=== PATIENT | female | born 1995 | race Caucasian/White ===

== ENCOUNTER 2023-04-09 09:15 | Outpatient (CLI) | payer OTHER, SELFPAY ==
[2023-04-09 11:12] LABS: Basophils Absolute Auto 0.1 K/mm3 (0.0-0.1); Basophils Percent Auto 0.4 % (0.2-1.2); Eosinophils Absolute Auto 0.3 K/mm3 (0-0.3); Eosinophils Percent Auto 1.8 % (0-4.4); Hemoglobin 12.6 g/dL (12.0-15.0); Immature Granulocyte Absolute 0.14 K/mm3 (0.00-0.031); Immature Granulocyte Percent A 0.9 % (0-0.5); Lymphocytes Absolute Auto 3.01 K/mm3 (0.9-3.2); Lymphocytes Percent Auto 18.9 % (18.3-44.2); Mean Corpuscular HGB Conc 32.3 g/dl (32-36); Mean Corpuscular Hemoglobin 28.7 pg (26-34); Mean Corpuscular Volume 88.8 fl (80-100); Mean Platelet Volume 9.8 fl (7.4-10.4); Monocytes Percent Auto 6.2 % (2.6-8.5); Neutrophils Absolute Auto 11.4 K/mm3 (1.3-6.7); Neutrophils Percent Auto 71.8 % (45.5-73.1); Platelet Count Result 350 k/mm3 (150-375); Red Blood Count 4.39 M/mm3 (4.2-5.4); White Blood Count 15.9 K/mm3 (4.5-10.0)
[2023-04-09 11:46] LABS: Glucose 1 Hour PP 50gm Dose 91 mg/dL
[2023-04-09 12:02] LABS: HIV 1/2 Ab P24 Ag Result Negative (Negative)
[2023-04-09 12:09] LABS: Hepatitis B Surface Antigen Negative (Negative); Rubella IgG Antibody 9.1 IU/ML
[2023-04-09 17:05] LABS: Rapid Plasma Reagin Non-Reactive (NonReactive)
[2023-04-13 09:00] LABS: CMV IgG Antibody <0.60 U/mL (<0.60)
== END 2023-04-09 09:16 | disposition home or self-care (01) ==
PROVIDERS: Visit Provider Student in an Organized Health Care Education/Training Program
DX: N94.89 Other specified conditions associated with female genital organs and menstrual cycle (principal)
CPT/HCPCS: 36415; 82947; 84702; 85025; 86592; 86644; 86703; 86747; 86762; 86787; 86850; 86900; 86901; 87086; 87340; G0432

== ENCOUNTER 2023-08-27 13:21 | Outpatient (CLI) | payer OTHER, SELFPAY ==
[2023-08-27 14:43] LABS: Basophils Absolute Auto 0.1 K/mm3 (0.0-0.1); Basophils Percent Auto 0.4 % (0.2-1.2); Eosinophils Absolute Auto 0.2 K/mm3 (0-0.3); Eosinophils Percent Auto 1.1 % (0-4.4); Hematocrit 37.5 % (37.0-47.0); Immature Granulocyte Absolute 0.25 K/mm3 (0.00-0.031); Immature Granulocyte Percent A 1.5 % (0-0.5); Lymphocytes Absolute Auto 2.22 K/mm3 (0.9-3.2); Lymphocytes Percent Auto 13.1 % (18.3-44.2); Mean Corpuscular Hemoglobin 28.8 pg (26-34); Mean Corpuscular Volume 89.9 fl (80-100); Mean Platelet Volume 9.7 fl (7.4-10.4); Monocytes Absolute Auto 0.9 K/mm3 (0.1-0.6); Monocytes Percent Auto 5.5 % (2.6-8.5); Neutrophils Absolute Auto 13.3 K/mm3 (1.3-6.7); Neutrophils Percent Auto 78.4 % (45.5-73.1); Platelet Count Result 339 k/mm3 (150-375); Red Blood Count 4.17 M/mm3 (4.2-5.4); Red Cell Distribution Width 13.4 % (11.5-14.5); White Blood Count 16.9 K/mm3 (4.5-10.0)
[2023-08-27 14:51] LABS: Glucose 1 Hour PP 50gm Dose 116 mg/dL
[2023-08-27 16:07] LABS: HIV 1/2 Ab P24 Ag Result Negative (Negative)
== END 2023-08-27 13:22 | disposition home or self-care (01) ==
LOC: ANHLAB 13:22
PROVIDERS: Visit Provider Student in an Organized Health Care Education/Training Program
DX: Z34.90 Encounter for supervision of normal pregnancy, unspecified, unspecified trimester (principal)
CPT/HCPCS: 36415; 82947; 85025; 86703; G0432

== ENCOUNTER 2023-10-26 18:10 | Inpatient (IN) | payer OTHER, SELFPAY ==
[2023-10-26] VITALS (29 sets, daily range): BP systolic 125–166; BP diastolic 73–100; PULSE 81–97; TEMP 36.4; BMI 48.6
[2023-10-26 18:57] LABS: Creatinine Urine 147.1 mg/dL; Total Protein Urine Random 157 mg/dL; Ur Ttl Prot Creatinine Ratio 1.07 mg/mg (0-0.20)
[2023-10-26 19:03] LABS: Appearance Urine Cloudy (Clear); Bacteria Urine 3+ /hpf; Bilirubin Urine Negative (Negative); Blood Urine Negative (Negative); Color Urine Yellow (Yellow); Glucose Urine UA Negative (Negative); Ketones Urine Negative (Negative); Leukocyte Esterase Ur Negative LEU/UL (Negative); Need Manual Microscopic Reviewed; Nitrate Urine Negative (Negative); Non Pathogenic Casts 0-2; Protein Urine 2+ mg/dL (Negative); RBC Urine 0-2 /hpf (0-2); Specific Grav Ur 1.025 (1.001-1.035); Squamous Epithelial Cell Urine Few /hpf (Few); Urobilinogen Urine 0.2 mg/dL (<2.0)
[2023-10-26 19:05] LABS: Add Urine Microscopic? YES; Basophils Absolute Auto 0.1 K/mm3 (0.0-0.1); Basophils Percent Auto 0.4 % (0.2-1.2); Eosinophils Absolute Auto 0.2 K/mm3 (0-0.3); Hematocrit 36.4 % (37.0-47.0); Immature Granulocyte Absolute 0.23 K/mm3 (0.00-0.031); Immature Granulocyte Percent A 1.4 % (0-0.5); Lymphocytes Absolute Auto 2.45 K/mm3 (0.9-3.2); Lymphocytes Percent Auto 14.6 % (18.3-44.2); Mean Corpuscular Hemoglobin 28.8 pg (26-34); Mean Corpuscular Volume 87.5 fl (80-100); Mean Platelet Volume 10.9 fl (7.4-10.4); Monocytes Absolute Auto 1.2 K/mm3 (0.1-0.6); Monocytes Percent Auto 7.1 % (2.6-8.5); Neutrophils Absolute Auto 12.7 K/mm3 (1.3-6.7); Neutrophils Percent Auto 75.5 % (45.5-73.1); Platelet Count Result 294 k/mm3 (150-375); Red Blood Count 4.16 M/mm3 (4.2-5.4); Red Cell Distribution Width 13.5 % (11.5-14.5); White Blood Count 16.8 K/mm3 (4.5-10.0)
[2023-10-26 19:19] LABS: Alanine Aminotransferase 13 U/L (6-35); Albumin Level 3.2 g/dL (3.5-5.1); Alkaline Phosphatase 133 U/L (38-126); Anion Gap 2 mmol/L (8-16); Aspartate Amino Transferase 20 U/L (14-36); Bilirubin,Total 0.1 mg/dL (0.2-1.3); Blood Urea Nitrogen 11 mg/dL (7-17); Calcium 9.3 mg/dL (8.4-10.2); Carbon Dioxide 23 mmol/L (22-30); Chloride 109 mmol/L (98-107); Estimated Glomerular Filt Rate > 60; Glucose 89 mg/dL (65-110); Potassium 3.9 mmol/L (3.4-5.0); Sodium 134 mmol/L (137-145); Uric Acid 5.1 mg/dL (2.5-7.5)
[2023-10-26] MEDS: LABETALOL HCL INJ 100 MG/20 ML VIAL 20 MG IV PUSH ×2 (20:02→22:38)
[2023-10-26] MEDS: LABETALOL HCL INJ 100 MG/20 ML VIAL 40 MG IV PUSH (20:37)
--- NOTE | 2023-10-26 21:15 | PC.NURSE ---
Spoke with Dr. Chand at 1945 regarding urine and blood lab result values. Dr. Chand requests that patient be admitted as inpatient and have Cervidil placed overnight. If pressures continue to become severe, initiate severe maternal hypertension protocol.
[2023-10-26 21:41] LABS: Basophils Absolute Auto 0.1 K/mm3 (0.0-0.1); Basophils Percent Auto 0.3 % (0.2-1.2); Eosinophils Absolute Auto 0.2 K/mm3 (0-0.3); Eosinophils Percent Auto 0.8 % (0-4.4); Hematocrit 36.2 % (37.0-47.0); Immature Granulocyte Absolute 0.24 K/mm3 (0.00-0.031); Immature Granulocyte Percent A 1.2 % (0-0.5); Lymphocytes Percent Auto 15.1 % (18.3-44.2); Mean Corpuscular HGB Conc 33.1 g/dl (32-36); Mean Corpuscular Hemoglobin 28.8 pg (26-34); Mean Platelet Volume 10.9 fl (7.4-10.4); Monocytes Absolute Auto 1.4 K/mm3 (0.1-0.6); Neutrophils Absolute Auto 14.6 K/mm3 (1.3-6.7); Neutrophils Percent Auto 75.6 % (45.5-73.1); Platelet Count Result 308 k/mm3 (150-375); Red Blood Count 4.16 M/mm3 (4.2-5.4); Red Cell Distribution Width 13.6 % (11.5-14.5); White Blood Count 19.3 K/mm3 (4.5-10.0)
[2023-10-26] MEDS: DINOPROSTONE 10 MG VAG INSERT VAGINAL (22:15)
--- NOTE | 2023-10-26 23:05 | ADMGEN ---
This patient, Beata Joya, was admitted to Labor/Delivery/Recovery 105-00. Patient/family oriented to hospital policies and general routines including ID bracelet, bed and alarms, visiting hours, pain management, procedures, bathroom and other care routines, personal items, smoking policy, room service/diet, and visiting hours. Information on how to activate the Rapid Response Team has been discussed. Patient/Family are encouraged to report perceived risks to care and to ask questions if they do not understand what they are told or what they should do.
[2023-10-27] VITALS (223 sets, daily range): BP systolic 84–169; BP diastolic 35–107; PULSE 63–107; RESP 14–16; TEMP 36.1–36.6; O2SAT 91–100
[2023-10-27] MEDS: LABETALOL HCL INJ 100 MG/20 ML VIAL 20 MG IV PUSH (03:34)
[2023-10-27] MEDS: LACTATED RINGERS 1,000 ML 125 ML IV CONT (03:58)
[2023-10-27] MEDS: MAGNESIUM SULF 4 GM/WATER100ML 4 GM/100 ML BAG IVPB (03:59)
--- NOTE | 2023-10-27 04:26 | WPDANESEPP ---
Anes - Eval Pre Procedure Procedure: Labor epidural Date/Time: 10/27/23 04:26 Surgeon: Jagruti Preop Diagnosis: Abdominal pain with contractions Pre Op Diagnosis: PIH Evaluation Patient Data Age: 28 Gender: F Height: 1.7 m Weight: 141 kg Last Vital Signs Temp 97.7 F 10/27/23 03:57 Pulse 80 10/27/23 04:21 BP 155/93 H 10/27/23 04:21 O2 Del Method Room Air 10/26/23 23:33 Allergies Allergy/AdvReac Type Severity Reaction Status Date / Time Penicillins AdvReac Mild Other Verified 10/26/23 23:46 Home Medications Medication Instructions Recorded Confirmed Type vits no.126-ferrous fum 1 tablet PO DAILY 04/28/23 10/26/23 History 28 mg iron-folic acid 800 mcg tablet (Classic ) Laboratory Tests 10/26/23 10/26/23 18:41 21:34 WBC 16.8 H K/mm3 19.3 H K/mm3 (4.5-10.0) (4.5-10.0) RBC 4.16 L M/mm3 4.16 L M/mm3 (4.2-5.4) (4.2-5.4) Hgb 12.0 g/dL 12.0 g/dL (12.0-15.0) (12.0-15.0) Hct 36.4 L % 36.2 L % (37.0-47.0) (37.0-47.0) MCV 87.5 fl 87.0 fl (80-100) (80-100) MCH 28.8 pg 28.8 pg (26-34) (26-34) MCHC 33.0 g/dl 33.1 g/dl (32-36) (32-36) RDW 13.5 % 13.6 % (11.5-14.5) (11.5-14.5) Plt Count 294 k/mm3 308 k/mm3 (150-375) (150-375) MPV 10.9 H fl 10.9 H fl (7.4-10.4) (7.4-10.4) Immature Gran % (Auto) 1.4 H % 1.2 H % (0-0.5) (0-0.5) Neut % (Auto) 75.5 H % 75.6 H % (45.5-73.1) (45.5-73.1) Lymph % (Auto) 14.6 L % 15.1 L % (18.3-44.2) (18.3-44.2) [place] % (Auto) 7.1 % 7.0 % (2.6-8.5) (2.6-8.5) Eos % (Auto) 1.0 % 0.8 % (0-4.4) (0-4.4) Baso % (Auto) 0.4 % 0.3 % (0.2-1.2) (0.2-1.2) Lymph # (Auto) 2.45 K/mm3 2.90 K/mm3 (0.9-3.2) (0.9-3.2) [place] # (Auto) 1.2 H K/mm3 1.4 H K/mm3 (0.1-0.6) (0.1-0.6) Eos # (Auto) 0.2 K/mm3 0.2 K/mm3 (0-0.3) (0-0.3) Baso # (Auto) 0.1 K/mm3 0.1 K/mm3 (0.0-0.1) (0.0-0.1) Abs Immat Gran (auto) 0.23 H K/mm3 0.24 H K/mm3 (0.00-0.031) (0.00-0.031) Absolute Neuts (auto) 12.7 H K/mm3 14.6 H K/mm3 (1.3-6.7) (1.3-6.7) Absolute Nucleated RBC 0.000 K/mm3 0.000 K/mm3 (0.0-0.012) (0.0-0.012) Nucleated RBC % 0.0 % 0.0 % (0.0-0.2) (0.0-0.2) Sodium 134 L mmol/L Pending (137-145) Potassium 3.9 mmol/L Pending (3.4-5.0) Chloride 109 H mmol/L Pending (98-107) Carbon Dioxide 23 mmol/L Pending (22-30) Anion Gap 2 L mmol/L Pending (8-16) BUN 11 mg/dL Pending (7-17) Creatinine 0.50 L mg/dL Pending (0.7-1.0) Estim Creat Clear Calc Not Reportable Pending Estimated GFR > 60 Pending (59 - ) Glucose 89 mg/dL Pending (65-110) Uric Acid 5.1 mg/dL Pending (2.5-7.5) Calcium 9.3 mg/dL Pending (8.4-10.2) Total Bilirubin 0.1 L mg/dL Pending (0.2-1.3) AST 20 U/L Pending (14-36) ALT 13 U/L Pending (6-35) Alkaline Phosphatase 133 H U/L Pending (38-126) Total Protein 6.0 L g/dL Pending (6.3-8.2) Albumin 3.2 L g/dL Pending (3.5-5.1) Urine Color Yellow (Yellow) Urine Appearance Cloudy H (Clear) Urine pH 7.0 (5.0-9.0) Ur Specific [place] 1.025 (1.001-1.035) Urine Protein 2+ H mg/dL (Negative) Urine Glucose (UA) Negative mg/dL (Negative) Urine Ketones Negative mg/dL (Negative) Ur Blood (Man) Negative (Negative) Urine Nitrate Negative (Negative) Urine Bilirubin Negative (Negative) Urine Urobilinogen 0.2 mg/dL (<2.0) Add Ur Microanalysis Reviewed Leukocyte Esterase Rfl Negative SADIE/UL (Negative) Urine RBC 0-2 /hpf (0-2) Urine WBC 11-20 H /hpf (0-3) Ur Squamous Epith Cells Few /hpf (Few) Urine Bacteria 3+ H /hpf Urine Casts 0-2 U Random Total Protein 157 mg/dL Urine Creatinin
[2023-10-27] MEDS: MAGNESIUM SULF 20GM/WATER500ML 500 ML 50 MG IV CONT ×2 (04:33→14:21)
[2023-10-27] MEDS: LABETALOL HCL 100 MG TABLET 200 MG PO (07:28)
[2023-10-27] MEDS: LACTATED RINGERS 1,000 ML 75 ML IV CONT ×3 (08:18→18:59)
--- NOTE | 2023-10-27 08:20 | PM.IMHP ---
H&P: HPI History of Present Illness Date/Time: 10/27/23 08:20 Chief Complaint: Intrauterine at term preeclampsia Narrative: 28-year-old G1 at 37 weeks 3 days who presents with preeclampsia. Patient was seen outpatient visit today and noted to have elevated blood pressures and proteinuria. Patient has not had hypertension throughout the . Patient continued to have elevated blood pressures. Patient ruled in for preeclampsia by blood pressure criteria and elevated UPCR. Will plan for induction of labor. Review of Systems Cardiovascular: Cardiovascular: Denies chest pain, Denies leg edema, Denies palpitations, Denies dyspnea and Denies dyspnea on exertion Respiratory: Respiratory: Denies cough, Denies dyspnea and Denies dyspnea on exertion Gastrointestinal: Gastrointestinal: Denies abdominal pain, Denies constipation, Denies diarrhea, Denies nausea and Denies vomiting Genitourinary: Genitourinary: Denies hematuria, Denies urinary frequency, Denies dysuria, Denies pelvic pain, Denies urinary incontinence and Denies vaginal discharge Neurologic: Reports system reviewed and no additional complaints, except as documented Psychiatric: Psychiatric: Reports no additional psychiatric complaints Endocrine: Endocrine: Denies palpitations PMFSH Past Medical History Medical History Asthma Morbid obesity PIH ( induced hypertension) Suppression of menses Surgical History Surgical History H/O wisdom tooth extraction Hx of tonsillectomy Family History Family History Father Heart disease Social History Social History Smoking status: Never smoker Tobacco type: e-cigarettes/vaping Alcohol intake: never Substance use: former Substance use type: marijuana Do You Feel Safe in your Home?: Yes Lack of Transportation: No Lack of Food: Never True Current Housing: I Have Housing Concerned About Future Housing: No Difficulty Paying Gas/Electric Bills: No Difficulty Paying for Meds: No Currently Unemployed: No Education: Master's Degree or Higher Difficulty w/ Childcare or Family Care: No Living arrangements: with family Occupation/Education: occupation Gender identity (if verbalized by the patient): Female Sexual Orientation (if Verbalized by the Patient): Straight or Heterosexual Spiritual care concerns: No Meds Home Medications and Allergies Home Medications Medication Instructions Recorded Confirmed Type vits no.126-ferrous fum 1 tablet PO DAILY 04/28/23 10/26/23 History 28 mg iron-folic acid 800 mcg tablet (Classic ) Allergies Allergy/AdvReac Type Severity Reaction Status Date / Time Penicillins AdvReac Mild Other Verified 10/26/23 23:46 Vital Signs Vital Signs - 24 hr 10/26/23 18:45 10/26/23 19:01 10/26/23 19:16 Temperature Pulse Rate 91 87 83 Blood Pressure 156/96 H 146/86 H 150/84 H Pulse Oximetry Oxygen Delivery 10/26/23 19:31 10/26/23 19:46 10/26/23 20:00 Temperature 97.5 F L Pulse Rate 94 97 90 Blood Pressure 166/91 H 165/94 H 159/91 H Pulse Oximetry Oxygen Delivery 10/26/23 20:11 10/26/23 20:21 10/26/23 20:31 Temperature Pulse Rate 89 83 88 Blood Pressure 166/91 H 151/100 H 160/89 H Pulse Oximetry Oxygen Delivery 10/26/23 20:41 10/26/23 20:51 10/26/23 21:01 Temperature Pulse Rate 82 86 81 Blood Pressure 147/81 H 145/85 H 141/83 H Pulse Oximetry Oxygen Delivery 10/26/23 21:11 10/26/23 21:21 10/26/23 21:31 Temperature Pulse Rate 83 88 87 Blood Pressure 148/84 H 148/80 H 138/73 Pulse Oximetry Oxygen Delivery 10/26/23 22:16 10/26/23 22:31 10/26/23 22:41 Temperature Pulse Rate 83 89 90 Blood Pressu
[2023-10-27] MEDS: miSOPROStol 25 MCG TABLET 50 MCG PO (10:50)
--- NOTE | 2023-10-27 13:54 | PM.OBPNLAB ---
Pain Control Date/time seen: 10/27/23 13:54 Pain control: tolerating well Comments: Patient resting comfortably. Induction on going. Patient is tolerating magnesium. Pelvic Exam Dilation (cm): 0 Effacement (%): 50 station: -3 Amniotic membrane status: Intact Contractions Monitor mode: External Contraction frequency: 4 Contraction pattern: Regular Status status: Category l Assessment and Plan Assessment: induction ongoing Plan: continuous present management
[2023-10-27] MEDS: fentaNYL CITRATE INJ (*CRX) 100 MCG/2 ML VIAL 50 MCG IV PUSH (14:51)
[2023-10-27] MEDS: LACTATED RINGERS 500 ML 999 ML IV CONT (15:02)
--- NOTE | 2023-10-27 16:34 | PM.OBPNLAB ---
Pain Control Date/time seen: 10/27/23 16:34 Pain control: epidural Pelvic Exam Dilation (cm): 1 Effacement (%): 50 station: -3 Amniotic membrane status: Intact Contractions Monitor mode: External Contraction frequency: 4 Contraction pattern: Regular Status status: Category l Assessment and Plan Assessment: induction ongoing Comments: cervical cook's catheter placed. 40 ml of saline in each balloon
[2023-10-27] MEDS: OXYTOCIN 30 UNITS/NS 500 ML 30 UNITS/500 ML BAG IV CONT (17:10)
[2023-10-27] MEDS: ONDANSETRON INJ 4 MG/2 ML VIAL IV PUSH (21:51)
[2023-10-27] MEDS: ACETAMINOPHEN 500 MG TABLET 1000 MG PO (22:08)
[2023-10-28] VITALS (207 sets, daily range): BP systolic 79–159; BP diastolic 39–97; PULSE 63–106; RESP 16–18; TEMP 36.1–36.7; O2SAT 93–100
[2023-10-28] MEDS: MAGNESIUM SULF 20GM/WATER500ML 500 ML 50 MG IV CONT ×3 (00:19→20:54)
[2023-10-28] MEDS: LABETALOL HCL 100 MG TABLET 200 MG PO (04:51)
[2023-10-28] MEDS: FAMOTIDINE 20 MG/2 ML VIAL IV PUSH (05:17)
--- NOTE | 2023-10-28 07:15 | PM.OBPNLAB ---
Pain Control Date/time seen: 10/28/23 07:15 Pain control: epidural Pelvic Exam Dilation (cm): 1 Effacement (%): 50 station: -3 Amniotic membrane status: Intact Contractions Monitor mode: External Contraction frequency: 4 Contraction pattern: Regular Status status: Category l Assessment and Plan Assessment: induction ongoing Comments: station at -1. SROM at 0200. IUPC placed this AM. discussed US and suspected BPD of >99%. Will re-assess station throughout the day
[2023-10-28] MEDS: LACTATED RINGERS 1,000 ML 75 ML IV CONT ×3 (07:59→21:10)
[2023-10-28] MEDS: ONDANSETRON INJ 4 MG/2 ML VIAL IV PUSH (08:07)
[2023-10-28 08:47] LABS: Rapid Plasma Reagin Non-Reactive (NonReactive)
--- NOTE | 2023-10-28 11:39 | PM.OBPNLAB ---
Pain Control Date/time seen: 10/28/23 11:39 Pain control: epidural Pelvic Exam Dilation (cm): 6 Effacement (%): 90 station: -1 Amniotic membrane status: Ruptured Contractions Monitor mode: External Contraction pattern: Regular Status status: Category l Assessment and Plan Assessment: induction ongoing Plan: (failure to progress) Comments: Pt cervix has remained unchanged for over 12 hours. Pt has been ruptured since 0200. Discussed arrested labor with patient. Recommended primary . Risks, benefits, alternatives discussed with patient. Pt consents to proceed with primary
[2023-10-28] MEDS: AZITHROMYCIN 500 MG/NS 250 ML 500 MG/250 ML BAG 250 MG IVPB (11:48)
--- NOTE | 2023-10-28 11:52 | P.PNAN_ITS ---
Anes - Eval Final PreProcedure Day of Procedure 10/28/23 11:52 Patient weight: morbidly obese Heart: regular rate and rhythm Lungs: clear to auscultation Neurological: alert and oriented Last oral intake: 2 hours ASA classification: III Emergent: no Anesthetic plan: proceed Anesthesia type and monitoring: regional epidural and standard monitoring Results Review: All pre-operative results and documents have been reviewed as part of the pre- operative evaluation. Informed Consent: The patient's anesthetic plan and its attendant risks and benefits were discussed with the patient/family/POA. Questions were solicited and answers provided to the satisfaction of the patient/family/POA.
[2023-10-28] MEDS: ceFAZolin 3 GM/D5W 100 ML 100 ML IVPB (12:01)
--- NOTE | 2023-10-28 13:01 | W.PM.OBCSD ---
OB - Delivery Note Procedure Delivery date: 10/28/23 Pre-op diagnosis: Arrest of Decent, Arrest of Dilation and Preeclampsia w severe features Post-op Diagnosis: Same Induction method: Per Cervidil Protocol Delivery augmentation: Pitocin Delivery monitor: None Prior to decision for section, ACOG/SM labor guidelines were considered and discussed with the patient and staff. Decision made to proceed with the section.: Yes Procedure Performed: Primary Primary branch: low cervical, transverse Surgeon: Se Chand MD Anesthesia type: Epidural Description of Procedure/Findings: The patient was taken to the operating room. Epidural anesthesic was found to be adequate at a t-10 level. The patient was placed in a supine position with a slight left lateral tilt. A barnes catheter was placed with return of clear urine. A Bovie grounding pad was placed. Surgical prep was performed and surgical drapes were placed. A surgical time out was performed. A Pfannenstiel skin incision was then made with the scalpel and carried through to the underlying layer of fascia. The fascia was then incised in the midline and the incision was extended laterally with the Silva scissors. The superior aspect of the fascia was then grasped with the Nesha clamps, elevated, and the underlying rectus muscles dissected off bluntly and sharply. Attention was then turned to the inferior aspect of this incision which, in a similar fashion, was grasped, tented up with the Nesha clamps, and the rectus muscles dissected off both bluntly and sharply. The rectus muscles were then in the midline. The peritoneum was identified and entered bluntly. The peritoneal incision was then extended superiorly and inferiorly with good visualization of the bladder. An Graeme ring retractor was placed in the abdomen. The uterus was inspected for rotation. A low-transverse uterine incision was made sharply with the scalpel and entry was made into the uterine cavity. An amniotomy was made and copious amounts of clear fluid were noted on return. The uterine incision was extended laterally bluntly. The bladder blade was removed and the fetus was delivered atraumatically. The nose and mouth were suctioned with a bulb syringe. The umbilical cord was clamped twice and cut. The was handed off to the waiting staff. At the time of the delivery, the had good color, tone and grimace. The cried with minimal stimulation. A second segment of umbilical cord was clamped and cut for cord blood gasses. Cord blood was collected for determination of the blood type and for direct Malik. The placenta was delivered spontaneously without difficulty. The placenta appeared grossly normal and complete. The uterus was exteriorized and cleared of all clots and debris. The uterine incision was repaired using 0-monocryl suture in a running fashion. A second layer of 0 Monocryl suture was used in an imbricating fashion to obtain excellent hemostasis and uterine strength. The uterine closure was inspected for hemostasis. The posterior aspect of the uterus and the broad ligaments were inspected and the posterior cul-de-sac cleared of fluid and blood clots. The uterine closure was again inspected and found to be hemostatic. The Graeme ring retractor was removed from the abdomen. The pericolic gutters were inspected and were cleared of all blood clots and debris. The uterine closure was then re inspected to ensure hemostasis as were all subfascial tissues. The peritoneum was closed using 3-0 vicryl in a running fashion. The fascia was reapproximated with 0-vicryl in a running fashion. The subcutaneous tissue was irrigated and hemostasis achieved with electrocautery. It was reapproximated with 3-0 vicryl in a running fashion. The skin was closed with 4-0 vicryl in a subcuticular fashion. A sterile DG vacuum dressing was applied to the wound. The patient tolerated the procedu
[2023-10-28] MEDS: fentaNYL CITRATE INJ (*CRX) 100 MCG/2 ML VIAL 25 MCG IV PUSH ×3 (13:52→15:22)
[2023-10-28] MEDS: OXYTOCIN 30 UNITS/NS 500 ML 30 UNITS/500 ML BAG 125 UNITS IV CONT (14:07)
--- NOTE | 2023-10-28 15:30 | OBPPTRN ---
Patient transferred to post room #286 via stretcher. Support person present. Oriented to unit, room, information board, rooming in, admission packet and security measures. Patient verbalizes understanding.
[2023-10-28] MEDS: KETOROLAC 15 MG/ML VIAL (*BKC) IV PUSH ×2 (16:21→23:30)
[2023-10-28] MEDS: ACETAMINOPHEN 325 MG TABLET 650 MG PO ×2 (16:22→23:30)
[2023-10-28] MEDS: SIMETHICONE 80 MG TAB.CHEW PO (20:51)
[2023-10-28] MEDS: DOCUSATE SODIUM 100 MG CAPSULE PO (20:51)
[2023-10-29] VITALS (8 sets, daily range): BP systolic 125–165; BP diastolic 77–103; PULSE 70–84; RESP 16–18; TEMP 36.3–37.2; O2SAT 97–100
[2023-10-29 05:13] LABS: Basophils Absolute Auto 0.1 K/mm3 (0.0-0.1); Basophils Percent Auto 0.3 % (0.2-1.2); Eosinophils Absolute Auto 0.1 K/mm3 (0-0.3); Eosinophils Percent Auto 0.7 % (0-4.4); Hematocrit 34.7 % (37.0-47.0); Hemoglobin 11.4 g/dL (12.0-15.0); Immature Granulocyte Absolute 0.19 K/mm3 (0.00-0.031); Immature Granulocyte Percent A 1.1 % (0-0.5); Lymphocytes Absolute Auto 2.56 K/mm3 (0.9-3.2); Lymphocytes Percent Auto 14.4 % (18.3-44.2); Mean Corpuscular HGB Conc 32.9 g/dl (32-36); Mean Corpuscular Hemoglobin 29.1 pg (26-34); Mean Corpuscular Volume 88.5 fl (80-100); Mean Platelet Volume 11.1 fl (7.4-10.4); Monocytes Absolute Auto 1.3 K/mm3 (0.1-0.6); Neutrophils Absolute Auto 13.6 K/mm3 (1.3-6.7); Neutrophils Percent Auto 76.5 % (45.5-73.1); Platelet Count Result 288 k/mm3 (150-375); Red Blood Count 3.92 M/mm3 (4.2-5.4); White Blood Count 17.8 K/mm3 (4.5-10.0)
[2023-10-29] MEDS: ACETAMINOPHEN 325 MG TABLET 650 MG PO ×3 (05:50→18:05)
[2023-10-29] MEDS: KETOROLAC 15 MG/ML VIAL (*BKC) IV PUSH ×2 (05:50→12:05)
[2023-10-29] MEDS: MAGNESIUM SULF 20GM/WATER500ML 500 ML 50 MG IV CONT (07:10)
--- NOTE | 2023-10-29 09:42 | PM.OBPNVD ---
OB - PN: Subj Subjective Date/time seen: 10/29/23 09:42 Interval history: patient resting comfortably this morning. Patient has not yet ambulated out of bed. Pain is well controlled with p.o. medications. Patient's blood pressures continued to be mild range on magnesium. Magnesium is due to be discontinued mid day. Patient comments: no complaints, pain well controlled, tolerating diet and flatus present OB - PN: Obj Data Labs 10/29/23 04:56 10/26/23 18:41 Labs: Laboratory Results - last 24 hr 10/29/23 04:56 WBC 17.8 H RBC 3.92 L Hgb 11.4 L Hct 34.7 L MCV 88.5 MCH 29.1 MCHC 32.9 RDW 14.0 Plt Count 288 MPV 11.1 H Immature Gran % (Auto) 1.1 H Neut % (Auto) 76.5 H Lymph % (Auto) 14.4 L [place] % (Auto) 7.0 Eos % (Auto) 0.7 Baso % (Auto) 0.3 Lymph # (Auto) 2.56 [place] # (Auto) 1.3 H Eos # (Auto) 0.1 Baso # (Auto) 0.1 Abs Immat Gran (auto) 0.19 H Absolute Neuts (auto) 13.6 H Absolute Nucleated RBC 0.000 Nucleated RBC % 0.0 OB - PN A/P Plan day: 1 Plan: routine care Comments: patient doing well H/H stable afebrile, Blood pressure is mild range Patient currently on magnesium. Magnesium due to be discontinued mid day Will continue to monitor blood pressures, will consider p.o. antihypertensives if blood pressures are not controlled off of magnesium Patient diuresing well, will remove Montoya catheter Encouraged ambulation today dressing with moderate saturation, stable, area of saturation marked, will consider dressing change prior to discharge patient desires circumcision. Risks, benefits, alternatives discussed. Infant currently receiving D10 IV fluids for glucose management. Will postpone circumcision till is stable continue routine post op care Time Spent With Patient Time: Total time spent is greater than 50% in coordination of care (as documented) at patient's floor/unit and/or counseling patient: Time with patient: less than 15 minutes Review of Systems Constitutional: Constitutional: Reports no additional constitutional complaints Cardiovascular: Cardiovascular: Reports no additional cardiovascular complaints Respiratory: Respiratory: Reports no additional respiratory complaints Gastrointestinal: Gastrointestinal: Reports no additional gastrointestinal complaints Genitourinary: Genitourinary: Reports no additional female genitourinary complaints Exam Const: General: comfortable and no acute distress Resp: Effort & Inspection: normal respiratory effort Auscultation: clear to auscultation bilaterally Cardio: Rate: regular rate GI: GI Palp: Yes Soft to palpation, Yes Tenderness to palpation present (GI) (around incision ) and No Guarding due to palpation present (GI) Auscultation: normal bowel sounds Other: PICCO dressing in place. Moderate amount of blood saturation on the left aspect of the incision, area is marked Psych: Appearance: grossly normal Mental Status: mental status grossly normal Affect: normal affect
[2023-10-29] MEDS: MULTIVIT/MIN/PREN/FOL AC/IRON TABLET 1 TAB PO (09:57)
[2023-10-29] MEDS: DEXTROSE 5%/0.45% SOD CHL 1,000 ML 125 ML IV CONT (09:57)
[2023-10-29] MEDS: SIMETHICONE 80 MG TAB.CHEW PO ×3 (09:57→18:05)
[2023-10-29] MEDS: DOCUSATE SODIUM 100 MG CAPSULE PO ×2 (09:57→18:06)
[2023-10-29] MEDS: LABETALOL HCL 100 MG TABLET 200 MG PO (12:38)
--- NOTE | 2023-10-29 12:38 | WPDANLDPN2 ---
Anes-Prog Note L&D Date/Time: 10/29/23 12:38 Comfortable throughout: section Neuraxial method: epidural Epidural/Spinal procedure site: clean & non-tender Neuro status: Neuro function grossly intact. Cardiovascular status: normal Respiratory status: normal Airway patency: baseline Mental status: baseline Post-Op hydration status: normal Vital Signs: Last Vital Signs Temp 36.3 C L 10/29/23 12:10 Pulse 82 10/29/23 10:00 Resp 18 10/29/23 12:10 BP 156/90 H 10/29/23 12:10 Pulse Ox 100 10/29/23 12:10 O2 Del Method Room Air 10/29/23 04:00 Pain score (VAS): 2-3/10 I/O: Intake & Output 10/28/23 10/29/23 10/29/23 23:59 07:59 15:59 Intake Total 940 1200 Output Total 300 800 500 Balance 640 400 -500 Post-procedural complaints: none Patient feedback: Patient satisfied with anesthetic care.
--- NOTE | 2023-10-29 12:39 | WPDANLDNPN2 ---
Anes-Prog Note L&D-Neuraxial Date/Time: 10/29/23 12:39 Neuraxial medications: epidural PF morphine Opiod-related complaints: pruritis mild, no treatment Patient feedback: Patient satisfied with post-operative pain management.
--- NOTE | 2023-10-29 14:27 | PC.NURSE ---
[phone] Introductions were made, then consulted with patient to assess needs related to . Discussed with mother her?plans to feed?her infant, the?experience so far, and has been bottle feeding her since . Discussed the parents plan to feed infant and reviewed how to protect her milk supply. Resources provided for inpatient and outpatient services with the feeding sheet, mom/baby guide and name written on the communication board. Mother voiced understanding of information and will call for the next pumping session. Reported to the Primary RN. [phone] Breast pump provided prior to meeting RN JAIME due to ineffective . Instructions given on cleaning, care, usage, that there should be no pain, pumping schedule for milk production, collection, and storage of human milk. Patient was assessed for correct placement, flange size (27mm), to pump for comfort and nipple stretching/stimulation for adequate milk production every 3 hours (8 times in 24 hours) 1-2 times at night. Parents are encouraged to record the pumping schedule on the feeding sheet.?Mother voiced understanding of the education shared along with mom/baby guide and the pump measurement, flange fit handout for additional resource information. Reported to the Primary RN.
--- NOTE | 2023-10-29 15:54 | PM.OBDSVD ---
DS: Admitting Diagnosis Discharge Date 10/30/23 Admitting Diagnosis intrauterine at term Preeclampsia with severe features DS: Discharge Diagnosis Discharge Diagnosis (1) Preeclampsia: Code(s): O14.90 - Unspecified pre-eclampsia, unspecified trimester Status: Acute (2) Failure to progress in labor: Code(s): O62.2 - Other uterine inertia Status: Acute (3) S/P primary low transverse : Code(s): Z98.891 - History of uterine scar from previous surgery Status: Acute OB - DS: Summary Hospital Course Hospital Course: 28-year-old G1 who presented at 37 weeks with onset of preeclampsia with severe features. Patient underwent induction of labor per Cervidil protocol. Patient received Cervidil and 1 dose of view call misoprostol. Patient's labor was augmented with cervical catheter balloon, rupture of membranes, Pitocin. Patient's cervix did not progress past 6 cm and station remained high. Patient received magnesium sulfate intrapartum for management of preeclampsia with severe features. Patient was also started on labetalol 200 mg b.i.d. for management of blood pressures. Patient underwent primary for failure to progress. Patient received 24 hours of magnesium . Patient is discharged home on postoperative day 2. OB Procedures : None OB Procedures Intrapartum: OB Procedures: : None Peripartum Data Delivery Method: Section Procedures: Procedures Operation Date: 10/28/23 12:00 Actual Procedure Side Surgeon p Section Not Applicable Se Chand MD complications: none Status at Discharge Functional status at discharge: independent ambulation Overall status at discharge: patient is progressing back to baseline Time Spent with Patient Time attestation: Total time spent providing and/or coordinating discharge services: Time spent: Less than 30 minutes Exam Const: General: comfortable and no acute distress Resp: Effort & Inspection: normal respiratory effort Auscultation: clear to auscultation bilaterally Cardio: Rate: regular rate GI: Inspection: non-distended GI Palp: Yes Soft to palpation, No Firmness to palpation present (GI), Yes Tenderness to palpation present (GI) (mild tenderness over incision ) and No Guarding due to palpation present (GI) Auscultation: normal bowel sounds Psych: Appearance: grossly normal Mental Status: mental status grossly normal DS: Data Data Completed and Pending Pending studies at discharge: Pending at discharge 10/28/23 13:56 Surgical [PTH] Routine Labs on day of discharge: Labs from last 24 hours 10/29/23 04:56 WBC 17.8 H RBC 3.92 L Hgb 11.4 L Hct 34.7 L MCV 88.5 MCH 29.1 MCHC 32.9 RDW 14.0 Plt Count 288 MPV 11.1 H Immature Gran % (Auto) 1.1 H Neut % (Auto) 76.5 H Lymph % (Auto) 14.4 L [place] % (Auto) 7.0 Eos % (Auto) 0.7 Baso % (Auto) 0.3 Lymph # (Auto) 2.56 [place] # (Auto) 1.3 H Eos # (Auto) 0.1 Baso # (Auto) 0.1 Abs Immat Gran (auto) 0.19 H Absolute Neuts (auto) 13.6 H Absolute Nucleated RBC 0.000 Nucleated RBC % 0.0 Discharge Plan Discharge Consulting providers: Xavier Junior; Marquise Perez; Mague Borden Discharging Clinician: Se Chand Patient Disposition: Home, Self-Care Activity: as tolerated and pelvic rest Diet: regular Discharge Instructions: Education: Mom and Baby Guide Given to: Mother Follow-Up: Call your delivering provider's office for an appointment to be seen in: 1 Week Mom and baby should come to the [facility] for the follow-up appointment. Appointment Date/Time: November 02, 2023 at 11:00 am What to expect at your follow-up visit: Physical Assessment Call [phone] if you are unable to keep your appointment time. BREAST CARE: * Wear a snug supportive bra. * For engorgement discomfort: Breast F
[2023-10-29] MEDS: IBUPROFEN 600 MG TABLET PO (18:06)
[2023-10-30 00:10] VITALS: PULSE 68
[2023-10-30] MEDS: LABETALOL HCL 100 MG TABLET 200 MG PO ×2 (00:10→09:49)
[2023-10-30] MEDS: ACETAMINOPHEN 325 MG TABLET 650 MG PO ×2 (00:10→09:49)
[2023-10-30] MEDS: IBUPROFEN 600 MG TABLET PO ×2 (00:10→09:50)
[2023-10-30 00:17] VITALS: BP 156/96; PULSE 68; RESP 20; TEMP 36.6; O2SAT 100
[2023-10-30 03:30] VITALS: BP 152/90; PULSE 71; RESP 18; TEMP 36.6; O2SAT 100
[2023-10-30 08:10] VITALS: BP 149/83; PULSE 72; RESP 18; TEMP 36.7; O2SAT 98
[2023-10-30] MEDS: SIMETHICONE 80 MG TAB.CHEW PO ×2 (09:48→14:05)
[2023-10-30 09:49] VITALS: PULSE 76
[2023-10-30] MEDS: MULTIVIT/MIN/PREN/FOL AC/IRON TABLET 1 TAB PO (09:49)
[2023-10-30] MEDS: DOCUSATE SODIUM 100 MG CAPSULE PO (09:49)
[2023-10-30] MEDS: TETANUS,DIPHTHERIA,AC PERTUSSIS ADULT (0.5 ML) BOOSTRIX IM (09:50)
--- NOTE | 2023-10-30 11:29 | PC.NURSE ---
[id number] Purposefully rounded to assess for /pumping needs. Mother shared she doesn't have pain with pumping, however; the right nipple rubs on the inside of the barrel. 30mm breast shield was given to mother and she was encouraged to call for the next pumping session, questions, concerns, pain, or to have the new flange assessed. Encouraged good consistency with milk removal aiming for 8 times in 24 hours with 1-2 times at night. Mother voiced understanding the information, resource with mom/baby guide, feeding sheet, and will eat breakfast now. Reported to the Primary RN of the flange change.
--- NOTE | 2023-10-30 12:02 | PM.OBDSVD ---
DS: Admitting Diagnosis Discharge Date 10/30/2023 Admitting Diagnosis OB - DS: Summary Hospital Course Hospital Course: 28-year-old G1 who presented at 37 weeks with onset of preeclampsia with severe features. Patient underwent induction of labor per Cervidil protocol. Patient received Cervidil and 1 dose of view call misoprostol. Patient's labor was augmented with cervical catheter balloon, rupture of membranes, Pitocin. Patient's cervix did not progress past 6 cm and station remained high. Patient received magnesium sulfate intrapartum for management of preeclampsia with severe features. Patient was also started on labetalol 200 mg b.i.d. for management of blood pressures. Patient underwent primary for failure to progress. Patient received 24 hours of magnesium . Patient is discharged home on postoperative day 2. OB Procedures : None OB Procedures Intrapartum: OB Procedures: : None Peripartum Data Procedures: Procedures Operation Date: 10/28/23 12:00 Actual Procedure Side Surgeon p Section Not Applicable Se Chand MD Time Spent with Patient Time attestation: Total time spent providing and/or coordinating discharge services: DS: Data Data Completed and Pending Completed studies during hospitalization: Pending at discharge 10/28/23 13:56 Surgical [PTH] Routine Discharge Plan Discharge Discharging Clinician: Se Chand Patient Disposition: Home, Self-Care Activity: as tolerated and pelvic rest Diet: regular Patient Instructions: Antibiotic Form, (DC) Stand Alone Forms: General Discharge Information Follow-up/Referrals: Se Chand MD [Physician] - 1 Week (Dressing removal) Discharge Medications: New hydrocodone-acetaminophen 5-325 mg tablet 1 tablet PO Q6H PRN (Reason: pain) Qty: 28 0RF ibuprofen 600 mg tablet 600 mg PO Q6H PRN (Reason: pain) Qty: 30 0RF labetalol 200 mg tablet 200 mg PO Q12H Qty: 90 1RF Continued Classic 28 mg iron- 800 mcg tablet 1 tablet PO DAILY Date of admission: 10/26/23 18:10 Primary Care Provider: Shraddha Greer Admitting Provider: Se Chand Attending physician on admission: Se Chand Condition: Stable
--- NOTE | 2023-10-30 15:00 | PC.NURSE ---
DG dressing changed per MD order
--- NOTE | 2023-11-02 10:26 | WPDHPUPDATE1 ---
History and Physical Update Update Date/Time: 10/28/23 10:26 History and Physical has been reviewed, including an updated exam of the patient. There are NO changes in the patient's condition. Risks, benefits, and alternatives have been discussed and questions answered. Patient agrees to proceed with procedure.
[2023-11-02 11:35] VITALS: BP 150/86; PULSE 75; RESP 20; TEMP 37; O2SAT 97
== END 2023-10-30 17:07 | disposition home or self-care (01) | DRG 540 ==
LOC: ANHOBOP 18:18 → ANHOBPP 18:19 → ANHOBOP 19:56 → ANHOB2 10-29 15:57 → ANHLDR 11-02 08:47 → ANHOB2 11-02 08:47
PROVIDERS: Admitting Provider Student in an Organized Health Care Education/Training Program; Visit Provider Obstetrics & Gynecology
PROC: (CPT 59514; principal; 2023-10-28 12:00)
DX: O14.14 Severe pre-eclampsia complicating childbirth (principal); O69.81X0 Labor and delivery complicated by cord around neck, without compression, not applicable or unspecified; O99.214 Obesity complicating childbirth; E66.01 Morbid (severe) obesity due to excess calories; Z3A.37 37 weeks gestation of pregnancy; Z37.0 Single live birth; O62.0 Primary inadequate contractions; O32.4XX0 Maternal care for high head at term, not applicable or unspecified; Z23 Encounter for immunization
CPT/HCPCS: 36415; 80053; 82570; 84112; 84156; 84550; 85025; 86592; 86850; 86900; 86901; 87086; 88307; 90471; 90686; 90715; A9270; G0008; J0456; J0690; J1885; J2274; J2405; J2590; J2795; J3010; J3475; J7120